=== PATIENT | female | born 1955 | race Caucasian/White ===

== ENCOUNTER → 2020-11-11 | Outpatient (CLI) | payer OTHER ==
[~2020-11-11] MED LIST: ADDERALL 20 MG20 M1 PO; ALPRAZOLAM 0.50.5 M1 PO; ANORO ELLIPTA1 EACH INH; CELERY SEED EXTRACT PO; CELEXA 20 MG TA20 MG PO; CO Q-10100 M1 PO; DOXYCYCLINE 10100 M2 PO; HYALURONIC ACI1 EACH PO; LEVOTHYROXINE50 MCG PO; MAGNESIUM MALATE1 GM PO; METHOCARBAMOL500 M2 PO; MUCINEX1200 MG PO; OCUVITE ADULT1 EAC1 PO; OMEGA-3 FISH1200 MG PO; PROAIR HFA8.5 GM INH; PROBIOTIC1 EAC7 PO; PROTONIX40 M2 PO; SPIRONOLACTONE50 MG PO; VITAMIN B122500 MCG PO; VITAMIN D325 MC3 PO; VITAMINC500 PO; ZOCOR 20 MG TAB20 M1 PO; [UNRECOGNIZED DRUG - OTHER] PO
[2020-11-11 13:28] LABS: HEMATOCRIT 45.6 % (37.0-47.0); HEMOGLOBIN 15.8 gm/dL (12.0-15.0); MCH 32.9 pg (26.0-34.0); MCHC 34.7 g/dL (28.0-37.0); MCV 94.8 fL (80.0-100.0); RBC 4.81 mil/uL (4.20-5.00); RDW 12.7 % (10.5-14.5); WBC 4.9 thou/uL (4.0-11.0)
[2020-11-11 13:32] LABS: URINE BILIRUBIN NEGATIVE (Negative); URINE BLOOD NEGATIVE (Negative); URINE CLARITY CLEAR; URINE COLOR YELLOW; URINE GLUCOSE-RANDOM* NEGATIVE (Negative); URINE KETONES NEGATIVE (Negative); URINE LEUKOCYTES-REFLEX TRACE (Negative); URINE NITRITE-REFLEX NEGATIVE (Negative); URINE PROTEIN (DIPSTICK) NEGATIVE (Negative); URINE SPECIFIC GRAVITY 1.015 (1.005-1.035); URINE UROBILINOGEN 0.2 E.U./dl (0.2-1.0)
[2020-11-11 13:43] LABS: INR 0.95; PROTIME 10.4 Seconds (10.5-12.1)
[2020-11-11 13:45] LABS: ALBUMIN 4.1 g/dL (3.4-5.0); CALCIUM 9.5 mg/dL (8.5-10.1); CREATININE 0.7 mg/dL (0.6-1.0); POTASSIUM 4.4 mmol/L (3.5-5.1)
--- NOTE | 2020-11-12 07:11 | EKG ---
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
== END ==
LOC: PAC 12:41
PROVIDERS: ATTEND Orthopaedic Surgery
DX: M17.12 Unilateral primary osteoarthritis, left knee (principal)

== ENCOUNTER 2020-11-25 12:45 | Observation (INO) | payer OTHER ==
[~2020-11-25] VITALS: Ht 149.9 cm; Wt 59.0 kg
[2020-11-25 14:45] VITALS: BP 129/63
[2020-11-25 18:45] VITALS: BP 118/65
[2020-11-26 00:18] VITALS: BP 97/57
[2020-11-26 04:24] VITALS: BP 100/52
--- NOTE | 2020-11-26 15:10 | O ---
[facility] [place] [address] OPERATIVE REPORT Name: CARMEN AQUINO Room #: 443-P [facility] M.Migue#: [id number] Admission: 11/25/20 Attend Phys: Ruiz Franco MD Discharge: Date of : 51 Report #: [id number] THIS REPORT FOR: cc: FAM - Family physician unknown FAM - Family physician unknown Ruiz Franco MD ~ DATE OF SERVICE: 11/25/2020 PREOPERATIVE DIAGNOSIS: Left knee osteoarthritis. POSTOPERATIVE DIAGNOSIS: Left knee osteoarthritis. PROCEDURE: Left total knee arthroplasty using Navio robotic assistance. SURGEON: Ruiz Franco MD FOOD MANAGER: Juanis Cronin PA-C INDICATION FOR FOOD MANAGER: Throughout the case, extensive retraction, manipulation of the knee was required. This was afforded to me by my photographer assistant. ANESTHESIA: LMA with adductor canal block. IMPLANTS: A [employer] size 4 Journey II BCS Oxinium femur, a size 3 tibia, a size 32 patella and a size 9 constrained polyethylene. TOURNIQUET TIME: 46 minutes. ESTIMATED BLOOD LOSS: 25 mL. COMPLICATIONS: None. SPECIMENS: None. CONDITION UPON LEAVING THE OR: Stable. INDICATIONS FOR PROCEDURE: The patient is a 65-year-old female with left knee osteoarthritis. She had failed conservative measures for this and after discussion with her, she elected for left total knee arthroplasty. DESCRIPTION OF PROCEDURE: Risks, benefits, alternatives, complications were discussed in detail with the patient including but not limited to risk of anesthesia, risk of damage to nerves, arteries, blood vessels, risk for infection, bleeding, DVT, PE, and need for reoperation. Informed consent was obtained from the patient. Left knee was appropriately marked in the preoperative holding area. Adductor canal block was placed by anesthesia. She [address] [address] OPERATIVE REPORT Name: CARMEN AQUINO Room #: 443-P [facility] Mary Avila#: [id number] Admission: 11/25/20 Attend Phys: Ruiz Franco MD Discharge: Date of : 51 Report #: [id number] was brought to the operating room and placed in the supine position on the operating room table. LMA anesthesia was induced without complication. Tourniquet was placed on the left thigh. Left lower extremity was prepped and draped in normal sterile fashion. Timeout was performed properly identifying the patient and procedure as well as the instrumentation and implants. All in the operating room in agreement. Left lower extremity was exsanguinated, tourniquet was inflated. Tourniquet time was 46 minutes. Standard midline approach to the knee was made with 10 blade through the skin. Dissection was taken down sharply to the fascia and deep flaps were developed medially and laterally. Fresh 10 blade was used to make a medial parapatellar arthrotomy and the knee was inspected. There was severe tricompartmental osteoarthritis. ACL and PCL were removed sharply. Reference pins were placed in the femur and the tibia. The knee was digitally mapped using the [employer] robotic system. Intraoperative plan was made. We sized the size 4 femur, size 3 tibia with a 10 spacer. After acceptance of the intraoperative plan, the distal femoral cut was made with Navio bur. Distal femoral cutting block was pinned in place, and anterior, posterior and chamfer cuts were made. Attention was turned to the tibia. Remainder of the menisci removed with Bovie cautery. Tibial resection guide was pinned in place using Navio for placement and tibial resection was made. Flexion and extension gaps were checked and found to have good balance in flexion and extension both medially and laterally. Tibia sized, found to be a size 3. A size 3 tibial trial was placed, pinned and punched. A size 4 femoral trial was placed and box cut was made. This was then trialed with a size 9 polyethylene. Size 9 polyethylene demonstrated 1 mm laxity laterally with up to 2.5-3 mm medially. It was felt we could make up for this with a constrained implant; 9 mm of bone was resected from the posterior surface of the patella and a size 32 patellar trial button was placed. Knee was taken through range of motion, found to be stable, found to have good patellar tracking. Trial components were removed. Bone ends thoroughly irrigated with normal saline. Final size 3 tibia, size 4 Journey II BCS Oxinium femur and a size 32 patella were cemented in place using standard cementation techniques. While the cement cured, a periarticular injection consisting of morphine, ropivacaine, epinephrine, Toradol was placed around the knee joint capsule. After the cement cured, the tourniquet was deflated. Hemostasis was obtained with Bovie cautery. Final size 9 constrained polyethylene was placed. A gram of vancomycin was placed deep in the joint. The fascia was closed with 0 Vicryl. Skin was closed with 2-0 Vicryl, 3-0 Monocryl. Dermabond and a STERLING dressing was applied. The patient tolerated this procedure well and went to recovery room under care of anesthesia postoperatively. <ELECTRONICALLY SIGNED> By: Ruiz Franco MD 11/26/20 1510 1628 1716 Ruiz Franco MD /nt
[2020-11-26] MEDS ORDERED: MS CONTIN15 MG PO (15:16)
[2020-11-26] MEDS ORDERED: TRI-BUFFERED A325 M1 PO (15:16)
[2020-11-26] MEDS ORDERED: HYDROCODON-ACE1 EAC7 PO (15:16)
[2020-11-26 17:41] VITALS: BP 100/52
== END 2020-11-26 18:49 | disposition home or self-care (01) ==
LOC: OR → 4S 18:04
PROVIDERS: ADMIT Orthopaedic Surgery; ATTEND Orthopaedic Surgery
DX: M17.12 Unilateral primary osteoarthritis, left knee (principal); Z88.1 Allergy status to other antibiotic agents; Z91.040 Latex allergy status; Z88.2 Allergy status to sulfonamides; Z88.8 Allergy status to other drugs, medicaments and biological substances
CPT/HCPCS: 50010; 50101; 50415; 50954; 51130; 51225; 51320; 52001; 52282; 53000; 53078; 53365; 54118; 56527; 56528; 57095; 57103; 57110; 57127; 57180; 62110; 62900; 64039; 70005